=== PATIENT | female | born 1975 | race Two or more races ===

== ENCOUNTER 2019-12-20 09:00 | Day surgery (SDC) | payer OTHER ==
[~2019-12-20] VITALS: Ht 160 cm; Wt 70.3 kg
[2019-12-21] MEDS ORDERED: NEURONTIN300 MG PO (14:05)
[2019-12-21] MEDS ORDERED: TYLENOL ARTHRI650 MG PO (14:05)
[2019-12-21] MEDS ORDERED: ULTRAM50 MG PO (14:05)
[2019-12-21] MEDS ORDERED: SIMETHICONE125 M1 PO (14:05)
[2019-12-21] MEDS ORDERED: MIRALAX17 GM PO (14:05)
== END 2019-12-21 08:00 | disposition home or self-care (01) ==
LOC: SURG 09:00 → CIR.AMB 09:00 → O/R 09:00 → SURG 10:00 → EDSTATUS 10:30 → SURG 10:30 → O/R 18:10 → SURG 18:10 → CIR.AMB 12-21 08:00 → O/R 12-21 15:49 → SURG 12-21 15:49
DX: K43.0 Incisional hernia with obstruction, without gangrene (principal); K42.0 Umbilical hernia with obstruction, without gangrene

== ENCOUNTER 2021-01-29 09:32 | Outpatient (CLI) | payer OTHER ==
[~2021-01-29 09:32] MED LIST: MIRALAX17 GM PO; NEURONTIN300 MG PO; SIMETHICONE125 M1 PO; TYLENOL ARTHRI650 MG PO; ULTRAM50 MG PO
== END 2021-01-29 09:36 | disposition home or self-care (01) ==
LOC: SONOGRAMA 09:32
PROVIDERS: ATTEND Pathology Anatomic Pathology & Clinical Pathology
DX: E04.2 Nontoxic multinodular goiter (principal)

== ENCOUNTER 2024-01-05 05:55 | Day surgery (SDC) | payer OTHER ==
[~2024-01-05 05:55] MED LIST changes: +PROZAC40 MG
[2024-01-05] MEDS ORDERED: CEFAZOLIN SODIUM 1,000 MG VIAL ONE (07:36)
[2024-01-05] MEDS ORDERED: ENOXAPARIN SODIUM 40 MG/0.4 ML SYRINGE SUBCUTANEO ONE (08:17)
[2024-01-05] MEDS ORDERED: EPINEPHRINE HCL/PF 1 MG/ML AMPUL ONE (09:03)
[2024-01-05] MEDS ORDERED: LIDOCAINE HCL 1%/Epi 20ML VIAL IJ ONE (09:03)
[2024-01-05] MEDS ORDERED: LIDOCAINE HCL/EPINEPHRINE 10MG/ML 1% 50ML IJ ONE (09:03)
[2024-01-05] MEDS ORDERED: CEFAZOLIN SODIUM 1,000 MG VIAL IV SCH (10:30)
[2024-01-05] MEDS ORDERED: ENOXAPARIN SODIUM 40 MG/0.4 ML SYRINGE SUBCUTANEO SCH (10:30)
[2024-01-05] MEDS ORDERED: TERBUTALINE SULFATE 1 MG/ML AMPUL ONE (12:17)
[2024-01-05] MEDS ORDERED: KETOROLAC TROMETHAMINE 30 MG VIAL ONE (13:14)
[2024-01-05] MEDS ORDERED: KETOROLAC TROMETHAMINE 30 MG VIAL IV ONE (14:00)
[2024-01-05] MEDS ORDERED: ONDANSETRON HCL 2 MG/ML VIAL ONE (14:21)
== END 2024-01-05 15:30 | disposition home or self-care (01) ==
LOC: CIR.AMB 05:55
PROVIDERS: ATTEND Surgery
DX: K43.0 Incisional hernia with obstruction, without gangrene (principal); Z20.822 Contact with and (suspected) exposure to COVID-19
CPT/HCPCS: 49616; C1781